=== PATIENT | female | born 1955 | race Caucasian/White ===

== ENCOUNTER 2023-05-28 11:01 | Emergency (ER) | payer MEDICARE, BC, SELFPAY ==
[2023-05-28 11:05] VITALS: BP 165/92
[2023-05-28 11:35] VITALS: BMI 34.3
--- NOTE | 2023-05-28 11:38 | ED.MUSCINJ ---
HPI-Injury
General
Chief Complaint: Musculo-Skeletal Complaint
Source: patient
Exam Limitations: none
Time Seen by Provider: 05/28/23 11:26
Travel History
Have you had any contact with someone who has COVID-19?: No
Do you have any symptoms of coronavirus? Fever > 100 degrees, chills, cough, shortness of breath, sore throat, loss of taste or smell, muscle aches, or headache?: No
History of Present Illness-Injury
Initial Injury comments:
68-year-old female presents complaining with atraumatic onset of pain and swelling to the posterior lateral aspect of the right ankle starting 2 days ago getting worse. No chest pain or shortness of breath. She is not anticoagulated. Patient
expresses her concern for potential DVT. No other complaints at this time
Past History
Past History
ED Past Medical History: HTN, Hypercholesterolemia and Psychiatric (Anxiety, depression.)
Social History
Tobacco: Non-smoker
Phy Exam
Physical Exam
Physical Exam:
General: Well-appearing female no acute respiratory distress
Musculoskeletal exam: Right ankle slightly swollen posterior laterally tender posterior to the lateral malleolus. Achilles tendon is nontender the medial malleolus is nontender. She is lax and plantarflex. She is able to resist eversion and
inversion.
Vascular: 2+ dorsalis pedis pulse right foot
Neurologic: Good sensation right foot
Injury Course
Orders/Labs/Results
Orders:
Orders
05/28/23 11:08
Ankle, Right 3 view CR [CR Ankle - Right Min 3 Views *] Urgent
Comment: pt denies injury
Reason For Exam: pain and swelling to ankle
05/28/23 11:38
Venous Doppler Lwr Ext Rt [[facility] Venous LOWER Ext RT] Urgent
Comment:
Reason For Exam: swelling
MDM/Problems Addressed
Differential Diagnosis Includes:
Right ankle pain. Differential could include sprain versus tendinitis. No history of gout. Patient concerned about DVT clinically do not suspect this but ultrasound is pending. I personally visualized the x-rays of the right ankle which show
degenerative changes but no acute fracture.
*Critical Care Note
Total Time (30-74mins, 75-104mins- exclusive of procedures): Not Applicable
Update Note
Update Note:
X-ray again negative. Ultrasound also negative for DVT. Patient reassured. Suspect sprain or strain of the ankle. Recommended rest and Motrin. Stable for discharge
ED Attending Note
-
Portions of this chart may have been created with voice recognition software.� Occasional wrong word or��sound alike� substitutions may have occurred due to the inherent limitations of voice recognition software.
Discharge Plan
Departure
Patient Disposition: Home (Routine Discharge)
Date of Disposition: 05/28/23
Time of Disposition: 12:39
Patient with high blood pressure during this ER visit?: No
Discharge Problem:
Ankle sprain
Instructions: Muscle and Bone Pain (DC)
Referrals:
Kevin Moody MD [Family Provider] -
Activity Restrictions/Additional Instructions:
Rest. Use ibuprofen or Tylenol for pain. Elevate for swelling peer return if worse otherwise consider following up with orthopedics
Interventions
Interventions:
*General Assessment Last Done: 05/28/23 11:35
*Neglect/Abuse Screening Last Done: 05/28/23 11:35
ED- Fall Risk Assessment Last Done: 05/28/23 11:36
*ED COVID-19 Vaccine History Last Done: 05/28/23 11:05
ED-Musculoskeletal Assessment Last Done: 05/28/23 11:30
== END 2023-05-28 13:06 | disposition home or self-care (01) ==
LOC: EMR 11:01
PROVIDERS: EMERGENCY PHYSICIAN Student in an Organized Health Care Education/Training Program; FAMILY PHYSICIAN Family Medicine
DX: S93.401A Sprain of unspecified ligament of right ankle, initial encounter (principal); X58.XXXA Exposure to other specified factors, initial encounter; R22.41 Localized swelling, mass and lump, right lower limb
CPT/HCPCS: 73610; 93971; 99284

== ENCOUNTER → 2024-11-21 12:33 | Outpatient (REF) | payer MEDICARE, BC, SELFPAY | LOC: MRI 3T 12:33 | PROVIDERS: ATTENDING PHYSICIAN Pain Medicine Interventional Pain Medicine; FAMILY PHYSICIAN Family Medicine | DX: M54.16 Radiculopathy, lumbar region (principal) | CPT/HCPCS: 72148 ==